=== PATIENT | female | born 1965 | race Caucasian/White ===

== ENCOUNTER 2020-05-21 11:15 | Outpatient (RCR) | payer OTHER, SELFPAY ==
--- NOTE | 2020-03-29 12:45 | PT.OPPOC ---
Physical, Occupational & Speech Therapy At [facility] Current Diagnoses Multiple sclerosis (03/29/20) Diplopia (03/29/20) Other forms of nystagmus (03/29/20) Dizziness and giddiness (03/29/20) Visit Care Team Role Provider Type Gemma Woodard PA-C Primary Care Provider Non-Staff Specialty: Medical Address: [address] [place] [address], [place], [address] Email: Johnny Jimenez Attending Provider Non-Staff Referring Provider Specialty: Psychiatry Address: [address], [address], [place], [address] Email: Plan Of Care PT-OP-T Assessment and Plan Start: 03/29/20 17:40 Freq: Status: Active Protocol: Document 03/29/20 12:00 DCW (Rec: 03/30/20 17:46 DCW [id number]) Physical Therapy Assessment Rehab Potential Rehabilitation Potential Fair Evaluation Complexity Number of Personal Factors/Comorbidities 3 or More Number of Body Systems Impaired 4 or More Clinical Presentation at Evaluation Unstable Impairments Impairments Activity Tolerance,Balance, Coordination,Vestibular,Visual Motor Goals Four Impairment Pt complains of occasional horizontal diplopia, especially when fatigued Assisted Goal (LTG) Pt to report no instances of diplopia over the course on 3 weeks. LTG Duration 05/30/20 Three Impairment Pt exhibits hypometria during saccadic movements Assisted Goal (LTG) Pt to demonstrate WNL saccadic movements during testing. LTG Duration 05/30/20 Two Impairment Pt has a three line degradation during DVA testing Stamping Mill Tender Goal (LTG) Pt to demonstrate less than two line degradation during DVA to help decrease pt's sensation of oscillopsia LTG Duration 05/30/20 One Impairment Pt does not have an appropriate home exercise program Short Term Goal (STG) Pt to be independent and compliant with an appropriate HEP STG Duration 04/29/20 Assessment Summary Assessment Pt presents with visual motion sensitivity, gaze-evoked nystagmus, decreased VOR DVA, oscillopsia, and occasional diplopia secondary to MS relapse, specifically in the dorsal pontine. Pt's symptoms result in instability, vertigo , fatigue, and a sense of feeling overwhelmed with movement, limiting her ability to perform her normal activities. Vestibular rehabilitation may be helpful with improving the coordination between pt's visual and vestibular system, improving her VOR to limit oscillopsia, improve oculomotor function to decrease fatigue-induced diplopia, and training pt to use saccadic movements in conjunction with head turns to limit visual motion sensitivity during lateral movements. MS is obviously pt' s main complicating factor, and will likely limit pt's recovery to a certain extent, however pt should see at least some improvement with regular therapy and compliance with an appropriate HEP. Physical Therapy Plan Frequency and Duration Frequency of Treatment 2x/Week Duration of Treatment 10 weeks Plan of Care Start Date 03/29/20 Plan of Care End Date 06/07/20 Therapeutic Interventions Therapeutic Interventions Balance Training,Coordination Training,Gait Training,Home Exercise Program,Neuromuscular Re-education,Patient/ Caregiver Education,Self-Care/ Home Management,Therapeutic Exercises,Vestibular Rehabilitation Next Visit Focus/Plan Next Note Type Treatment Note Next Visit Plan Oculomotor strengthening, vestibular rehabilitation, adaptation/habituation exercises, VOR retraining Plan of Care Dates Plan of Care Start Date 03/29/20 Plan of Care End Date 06/07/20 Electronically Signed by: Rodrigue Irby, PT 03/30/20 [id number] Please Sign and Return: I have reviewed this Plan of Care and certify that the skilled therapy services above are required to meet the patient?s needs. Physician Signature Date Printed Name and Credentials Clinical Instructor Signature Printed Name and Credentials
--- NOTE | 2020-03-29 12:45 | PT.OIE ---
Current Diagnoses Multiple sclerosis (03/29/20) Diplopia (03/29/20) Other forms of nystagmus (03/29/20) Dizziness and giddiness (03/29/20) Visit Care Team Role Provider Type Gemma Woodard PA-C Primary Care Provider Non-Staff Specialty: Medical Address: [address] [place] [address], [place], [address] Email: Johnny Jimenez Attending Provider Non-Staff Referring Provider Specialty: Psychiatry Address: [address] [place] [address], [address], [place], [address] Email: Physical Therapy Initial Evaluation PT-OP-A Visit Information Start: 03/29/20 17:40 Freq: Status: Active Protocol: Document 03/29/20 12:00 DCW (Rec: 03/29/20 17:56 [facility] [id number]) Out-Patient Physical Therapy Visit Information Visit Information Visit Type Initial Evaluation Visit Start Time 12:00 Visit Stop Time 12:55 Total Visit Minutes 55 Visit Number 1 Number of WELDER AND FITTER Visits 0 Evaluation Information Evaluation Date 03/29/20 PT-OP-B Current Condition Start: 03/29/20 17:40 Freq: Status: Active Protocol: Document 03/29/20 12:00 DCW (Rec: 03/29/20 17:56 [facility] [id number]) Current Condition History of Current Condition Onset Date 18 years s/p MS diagnosis, three years s/p relapse Current Complaints Oscillopsia, Dizziness /c head movement, Visual Sensitivity, Diplopia History of Current Condition Pt is a 54 year old female 18 years s/p diagnosis of Multiple Sclerosis. Pt reports that her initial flare-up lasted for one year, but then she did not have any problems until 2017, when she suffered a relapse in symptoms, and started having increased visual motion sensitivity. Pt has dizziness with lateral head movements, struggles with any activity that increases visual demands, describes that everything looks bouncy when walking down the street, and notes that it just seems like a cumulative effect, the more I do, the more overwhelming it feels. Pt notes that in the three years she has been dealing with these symptoms, she has been much more immobile, depressed, and out of shape. It's just this downward spiral because I feel like I can't do anything . PT-OP-C Subjective Start: 03/29/20 17:40 Freq: Status: Active Protocol: Document 03/29/20 12:00 DCW (Rec: 03/29/20 17:56 DC [id number]) Patient Questionnaires Dizziness Handicap Inventory DHI Score 58% DHI Functional Impairment 40 to 59% Impaired (Score 40- 59) PT-OP-O Vestibular Start: 03/29/20 17:40 Freq: Status: Active Protocol: Document 03/29/20 12:00 DCW (Rec: 03/30/20 09:40 [facility] [id number]) Vestibular Assessment Visual Testing Smooth Pursuits Horizontal WNL Smooth Pursuits Vertical WNL Saccades Horizontal Hypometria Gaze Evoked Nystagmus With Fixation Positive Gaze Evoked Nystagmus Without Fixation Positive Tigre String Test WNL Convergence Test WNL DVA (Line Degradation) 3 Vestibulo-Ocular Reflex (VOR1) Positive Vestibulo-Ocular Reflex (VOR2) Positive Vestibulo-Ocular Reflex Cancellation Negative Comments Vestibular Comments Gaze nystagmus: direction- changing end-range nystagmus bilaterally, L>R with and without fixation present PT-OP-Q Treatments Start: 03/29/20 17:40 Freq: Status: Active Protocol: Document 03/29/20 12:00 DCW (Rec: 03/30/20 09:40 [facility] [id number]) Neuro Re-Education Treatment Vestibular Rehabilitation Eye Push-ups Details Eye push-ups with pen Position seated Corrective Saccades Details Eyes, then head to target Distance From Target Arms length Speed as tolerated Position seated X2 Viewing Details Head/Target move opposite directions Distance From Target Arms length Speed as tolerated Position seated X1 Viewing Details Moving head, stable target Distance From Target Arms length Speed as tolerated Position seated VOR Cancellation Details Head/target moves together Distance From Target Arms length Speed as tolerated Position seated PT-OP-T Assessment and Plan Start: 03/29/20 17:40 Freq: Status: Active Protocol: Document 03/29/20 12:00 DCW (Rec: 03/30/20 17:46 [facility] [id number]) Physical Therapy Assessment Rehab Potential Rehabilitation Potential Fair Evaluation Complexity Number of Personal Factors/Comorbidities 3 or More Number of Body Systems Impaired 4 or More Clinical Presentation at Evaluation Unstable Impairments Impairments Activity Tolerance,Balance, Coordination,Vestibular,Visual Motor Goals Four Impairment Pt complains of occasional horizontal diplopia, especially when fatigued Skilled Nursing Goal (LTG) Pt to report no instances of diplopia over the course on 3 weeks. LTG Duration 05/30/20 Three Impairment Pt exhibits hypometria during saccadic movements Liquified Natural Gas Technician Goal (LTG) Pt to demonstrate WNL saccadic movements during testing. LTG Duration 05/30/20 Two Impairment Pt has a three line degradation during DVA testing Liquified Natural Gas Technician Goal (LTG) Pt to demonstrate less than two line degradation during DVA to help decrease pt's sensation of oscillopsia LTG Duration 05/30/20 One Impairment Pt does not have an appropriate home exercise program Short Term Goal (STG) Pt to be independent and compliant with an appropriate HEP STG Duration 04/29/20 Assessment Summary Assessment Pt presents with visual motion sensitivity, gaze-evoked nystagmus, decreased VOR DVA, oscillopsia, and occasional diplopia secondary to MS relapse, specifically in the dorsal pontine. Pt's symptoms result in instability, vertigo , fatigue, and a sense of feeling overwhelmed with movement, limiting her ability to perform her normal activities. Vestibular rehabilitation may be helpful with improving the coordination between pt's visual and vestibular system, improving her VOR to limit oscillopsia, improve oculomotor function to decrease fatigue-induced diplopia, and training pt to use saccadic movements in conjunction with head turns to limit visual motion sensitivity during lateral movements. MS is obviously pt' s main complicating factor, and will likely limit pt's recovery to a certain extent, however pt should see at least some improvement with regular therapy and compliance with an appropriate HEP. Physical Therapy Plan Frequency and Duration Frequency of Treatment 2x/Week Duration of Treatment 10 weeks Plan of Care Start Date 03/29/20 Plan of Care End Date 06/07/20 Therapeutic Interventions Therapeutic Interventions Balance Training,Coordination Training,Gait Training,Home Exercise Program,Neuromuscular Re-education,Patient/ Caregiver Education,Self-Care/ Home Management,Therapeutic Exercises,Vestibular Rehabilitation Next Visit Focus/Plan Next Note Type Treatment Note Next Visit Plan Oculomotor strengthening, vestibular rehabilitation, adaptation/habituation exercises, VOR retraining
--- NOTE | 2020-04-16 14:36 | PT.OTN ---
Current Diagnoses Multiple sclerosis (04/16/20) Diplopia (04/16/20) Other forms of nystagmus (04/16/20) Dizziness and giddiness (04/16/20) Physical Therapy Treatment Note PT-OP-A Visit Information Start: 03/29/20 17:40 Freq: Status: Active Protocol: Document 04/16/20 13:45 DCW (Rec: 04/16/20 14:35 DCW [id number]) Out-Patient Physical Therapy Visit Information Visit Information Visit Type Treatment Note Visit Start Time 13:45 Visit Stop Time 14:30 Total Visit Minutes 45 Visit Number 2 Number of PRIMER SUPERVISOR Visits 0 Evaluation Information Evaluation Date 03/29/20 PT-OP-B Current Condition Start: 03/29/20 17:40 Freq: Status: Active Protocol: Document 03/29/20 12:00 DCW (Rec: 03/29/20 17:56 DCW [id number]) Current Condition History of Current Condition Onset Date 18 years s/p MS diagnosis, three years s/p relapse Current Complaints Oscillopsia, Dizziness /c head movement, Visual Sensitivity, Diplopia History of Current Condition Pt is a 54 year old female 18 years s/p diagnosis of Multiple Sclerosis. Pt reports that her initial flare-up lasted for one year, but then she did not have any problems until 2017, when she suffered a relapse in symptoms, and started having increased visual motion sensitivity. Pt has dizziness with lateral head movements, struggles with any activity that increases visual demands, describes that everything looks bouncy when walking down the street, and notes that it just seems like a cumulative effect, the more I do, the more overwhelming it feels. Pt notes that in the three years she has been dealing with these symptoms, she has been much more immobile, depressed, and out of shape. It's just this downward spiral because I feel like I can't do anything . PT-OP-C Subjective Start: 03/29/20 17:40 Freq: Status: Active Protocol: Document 04/16/20 13:45 DCW (Rec: 04/16/20 14:35 DCW [id number]) OP-PT Subjective Patient Comments Patient Comments Pt reports she is noticing a difference in the world,. and me relative to it. PT-OP-O Vestibular Start: 03/29/20 17:40 Freq: Status: Active Protocol: Document 03/29/20 12:00 DCW (Rec: 03/30/20 09:40 DCW [id number]) Vestibular Assessment Visual Testing Smooth Pursuits Horizontal WNL Smooth Pursuits Vertical WNL Saccades Horizontal Hypometria Gaze Evoked Nystagmus With Fixation Positive Gaze Evoked Nystagmus Without Fixation Positive Tigre String Test WNL Convergence Test WNL DVA (Line Degradation) 3 Vestibulo-Ocular Reflex (VOR1) Positive Vestibulo-Ocular Reflex (VOR2) Positive Vestibulo-Ocular Reflex Cancellation Negative Comments Vestibular Comments Gaze nystagmus: direction- changing end-range nystagmus bilaterally, L>R with and without fixation present PT-OP-Q Treatments Start: 03/29/20 17:40 Freq: Status: Active Protocol: Document 04/16/20 13:45 DCW (Rec: 04/16/20 14:35 DCW [id number]) Neuro Re-Education Treatment Vestibular Rehabilitation Garcia Chart Details Saccadic Reading Comments Full chart 1:02, one mistake Targets Details Laser tracking Background [place] print Position Stance - Firm and Hernández foam Comments Horizontal, Vertical, Cursive Eye Push-ups Details Eye push-ups with pen Position seated Corrective Saccades Details Eyes, then head to target Distance From Target Arms length Speed as tolerated Position seated X2 Viewing Details Head/Target move opposite directions Distance From Target Arms length Speed as tolerated Position seated X1 Viewing Details Moving head, stable target Distance From Target Arms length Speed as tolerated Position seated VOR Cancellation Details Head/target moves together Distance From Target Arms length Speed as tolerated Position seated PT-OP-T Assessment and Plan Start: 03/29/20 17:40 Freq: Status: Active Protocol: Document 04/16/20 13:45 DCW (Rec: 04/16/20 14:35 DCW [id number]) Physical Therapy Assessment Assessment Summary Assessment Pt has made fantastic progress so far, improved gaze stability and decreased complaints of oscillopsia. Continue with therapy in order to reduce remaining visual motion sensitivity. Physical Therapy Plan Frequency and Duration Frequency of Treatment 2x/Week Duration of Treatment 10 weeks Plan of Care Start Date 03/29/20 Plan of Care End Date 06/07/20 Therapeutic Interventions Therapeutic Interventions Balance Training,Coordination Training,Gait Training,Home Exercise Program,Neuromuscular Re-education,Patient/ Caregiver Education,Self-Care/ Home Management,Therapeutic Exercises,Vestibular Rehabilitation Next Visit Focus/Plan Next Note Type Treatment Note Next Visit Plan Oculomotor strengthening, vestibular rehabilitation, adaptation/habituation exercises, VOR retraining
--- NOTE | 2020-05-21 12:12 | PT.OTN ---
Current Diagnoses Multiple sclerosis (05/21/20) Diplopia (05/21/20) Other forms of nystagmus (05/21/20) Dizziness and giddiness (05/21/20) Physical Therapy Treatment Note PT-OP-A Visit Information Start: 03/29/20 17:40 Freq: Status: Active Protocol: Document 05/21/20 11:15 DCW (Rec: 05/21/20 12:12 DCW [id number]) Out-Patient Physical Therapy Visit Information Visit Information Visit Type Treatment Note Visit Start Time 11:15 Visit Stop Time 12:00 Total Visit Minutes 45 Visit Number [address] CLERK Visits 0 Evaluation Information Evaluation Date 03/29/20 PT-OP-B Current Condition Start: 03/29/20 17:40 Freq: Status: Active Protocol: Document 03/29/20 12:00 DCW (Rec: 03/29/20 17:56 DCW [id number]) Current Condition History of Current Condition Onset Date 18 years s/p MS diagnosis, three years s/p relapse Current Complaints Oscillopsia, Dizziness /c head movement, Visual Sensitivity, Diplopia History of Current Condition Pt is a 54 year old female 18 years s/p diagnosis of Multiple Sclerosis. Pt reports that her initial flare-up lasted for one year, but then she did not have any problems until 2017, when she suffered a relapse in symptoms, and started having increased visual motion sensitivity. Pt has dizziness with lateral head movements, struggles with any activity that increases visual demands, describes that everything looks bouncy when walking down the street, and notes that it just seems like a cumulative effect, the more I do, the more overwhelming it feels. Pt notes that in the three years she has been dealing with these symptoms, she has been much more immobile, depressed, and out of shape. It's just this downward spiral because I feel like I can't do anything . PT-OP-C Subjective Start: 03/29/20 17:40 Freq: Status: Active Protocol: Document 05/21/20 11:15 DCW (Rec: 05/21/20 12:12 DCW [id number]) OP-PT Subjective Patient Comments Patient Comments Pt admits isra tunfortunately I've really been slacking off with my exercises, and I can tell I'm slipping backward. PT-OP-O Vestibular Start: 03/29/20 17:40 Freq: Status: Active Protocol: Document 03/29/20 12:00 DCW (Rec: 03/30/20 09:40 DCW [id number]) Vestibular Assessment Visual Testing Smooth Pursuits Horizontal WNL Smooth Pursuits Vertical WNL Saccades Horizontal Hypometria Gaze Evoked Nystagmus With Fixation Positive Gaze Evoked Nystagmus Without Fixation Positive Tigre String Test WNL Convergence Test WNL DVA (Line Degradation) 3 Vestibulo-Ocular Reflex (VOR1) Positive Vestibulo-Ocular Reflex (VOR2) Positive Vestibulo-Ocular Reflex Cancellation Negative Comments Vestibular Comments Gaze nystagmus: direction- changing end-range nystagmus bilaterally, L>R with and without fixation present PT-OP-Q Treatments Start: 03/29/20 17:40 Freq: Status: Active Protocol: Document 05/21/20 11:15 DCW (Rec: 05/21/20 12:12 DCW [id number]) Neuro Re-Education Treatment Balance Activities 8 Details Reading on Trampoline 7 Details Single leg forward bend to cone Comments with and without head turns 6 Details Read tennis balls in air 5 Details Rotational Ball toss 4 Details Looking behind at dots 3 Details Infinity walk 2 Details Tandem walking /c head turns 1 Details Smooth pursuit ball toss-up Comments Standing Walking Tandem Walking PT-OP-T Assessment and Plan Start: 03/29/20 17:40 Freq: Status: Active Protocol: Document 05/21/20 11:15 DCW (Rec: 05/21/20 12:12 DCW [id number]) Physical Therapy Assessment Impairments Impairments Activity Tolerance,Balance, Coordination,Vestibular,Visual Motor Goals Four Impairment Pt complains of occasional horizontal diplopia, especially when fatigued Entrepreneurial Finance Professor Goal (LTG) Pt to report no instances of diplopia over the course on 3 weeks. LTG Duration 05/30/20 Three Impairment Pt exhibits hypometria during saccadic movements Care Home Goal (LTG) Pt to demonstrate WNL saccadic movements during testing. LTG Duration 05/30/20 Two Impairment Pt has a three line degradation during DVA testing Care Home Goal (LTG) Pt to demonstrate less than two line degradation during DVA to help decrease pt's sensation of oscillopsia LTG Duration 05/30/20 One Impairment Pt does not have an appropriate home exercise program Short Term Goal (STG) Pt to be independent and compliant with an appropriate HEP STG Duration 04/29/20 Assessment Summary Assessment Pt did very well today, found significant challenge with both balance and visual tracking with most of the exercises, very happy with the topics covered today. Physical Therapy Plan Frequency and Duration Frequency of Treatment 2x/Week Duration of Treatment 10 weeks Plan of Care Start Date 03/29/20 Plan of Care End Date 06/07/20 Therapeutic Interventions Therapeutic Interventions Balance Training,Coordination Training,Gait Training,Home Exercise Program,Neuromuscular Re-education,Patient/ Caregiver Education,Self-Care/ Home Management,Therapeutic Exercises,Vestibular Rehabilitation Next Visit Focus/Plan Next Note Type Treatment Note Next Visit Plan Oculomotor strengthening, vestibular rehabilitation, adaptation/habituation exercises, VOR retraining
--- NOTE | 2020-10-13 11:53 | PT.OPDS ---
Current Diagnoses Multiple sclerosis (05/21/20) Diplopia (05/21/20) Other forms of nystagmus (05/21/20) Dizziness and giddiness (05/21/20) Visit Care Team Role Provider Type Gemma Woodard PA-C Primary Care Provider Non-Staff Specialty: Medical Address: [address] [place] [address], [place], [address] Email: Jhonny Jimenez MD Attending Provider Non-Staff Referring Provider Specialty: Psychiatry Address: [address] [place] [address], [address], [place], [address] Email: Visit Number Visit Number 3 Discharge Summary PT-OP-B Current Condition Start: 03/29/20 17:40 Freq: Status: Active Protocol: Document 03/29/20 12:00 DCW (Rec: 03/29/20 17:56 DCW [id number]) Current Condition History of Current Condition Onset Date 18 years s/p MS diagnosis, three years s/p relapse Current Complaints Oscillopsia, Dizziness /c head movement, Visual Sensitivity, Diplopia History of Current Condition Pt is a 54 year old female 18 years s/p diagnosis of Multiple Sclerosis. Pt reports that her initial flare-up lasted for one year, but then she did not have any problems until 2017, when she suffered a relapse in symptoms, and started having increased visual motion sensitivity. Pt has dizziness with lateral head movements, struggles with any activity that increases visual demands, describes that everything looks bouncy when walking down the street, and notes that it just seems like a cumulative effect, the more I do, the more overwhelming it feels. Pt notes that in the three years she has been dealing with these symptoms, she has been much more immobile, depressed, and out of shape. It's just this downward spiral because I feel like I can't do anything . PT-OP-C Subjective Start: 03/29/20 17:40 Freq: Status: Active Protocol: Document 05/21/20 11:15 DCW (Rec: 05/21/20 12:12 DCW [id number]) OP-PT Subjective Patient Comments Patient Comments Pt admits isra tunfortunately I've really been slacking off with my exercises, and I can tell I'm slipping backward. PT-OP-O Vestibular Start: 03/29/20 17:40 Freq: Status: Active Protocol: Document 03/29/20 12:00 DCW (Rec: 03/30/20 09:40 [facility] [id number]) Vestibular Assessment Visual Testing Smooth Pursuits Horizontal WNL Smooth Pursuits Vertical WNL Saccades Horizontal Hypometria Gaze Evoked Nystagmus With Fixation Positive Gaze Evoked Nystagmus Without Fixation Positive Tigre String Test WNL Convergence Test WNL DVA (Line Degradation) 3 Vestibulo-Ocular Reflex (VOR1) Positive Vestibulo-Ocular Reflex (VOR2) Positive Vestibulo-Ocular Reflex Cancellation Negative Comments Vestibular Comments Gaze nystagmus: direction- changing end-range nystagmus bilaterally, L>R with and without fixation present PT-OP-T Assessment and Plan Start: 03/29/20 17:40 Freq: Status: Active Protocol: Document 10/13/20 11:50 DCW (Rec: 10/13/20 11:53 [facility] [id number]) Physical Therapy Assessment Assessment Summary Assessment Pt has canceled and rescheduled a few times due to schedule conflicts and coronavirus concerns. Unfortunately, pt has now reached the point where she has not been seen in 4.5 months, and her next scheduled visit was still one month away. Therapist phoned patient and informed her that this was too long of a lapse in treatment, and she would need to be discharged. Pt was understanding, but disappointed. Pt instructed to return with a new evaluation when she felt better about attending therapy.
== END 2020-10-18 15:05 ==
LOC: PHYS 11:15
PROVIDERS: PCP Physician Assistant Medical; Referring Provider Psychiatry & Neurology Neurology; Visit Provider Psychiatry & Neurology Neurology
DX: G35 Multiple sclerosis (principal); R42 Dizziness and giddiness; H53.2 Diplopia; H55.09 Other forms of nystagmus
CPT/HCPCS: 97112; 97163

== ENCOUNTER → 2021-08-05 12:10 | Outpatient (CLI) | payer OTHER, SELFPAY ==
--- NOTE | 2021-08-05 | DI.MRI.S_ITS ---
PROCEDURE: MR CERVICAL SPINE WO CON INDICATIONS: NECK PAIN TECHNIQUE: Noncontrast sagittal T1 spin echo and T2 fast spin echo, sagittal STIR, foraminal oblique sagittal T2 fast spin echo, and axial gradient echo or T2 fast spin echo through the cervical spine. COMPARISON: Outside Facility, RG, MRI C-SPINE W/WO CONTRAST, 08/10/2018, 16:23. FINDINGS: Image quality: Excellent. Alignment and Curvature: There is loss of normal cervical lordosis. There is mild grade 1 anterolisthesis of C3 on C4. Bone Marrow: Marrow demonstrates normal overall signal. Mild reactive signal within the endplates of the mid/upper cervical spine. Spinal Cord: Visualized spinal cord has normal size. The previously seen focus of minimally elevated T2 signal intensity within the left hemicord at C4 (series 4, image 18) is not significantly changed. No cerebellar tonsillar herniation. Paraspinous Soft Tissues: No paravertebral masses. Prevertebral soft tissues are normal in thickness. The previously seen left thyroid mass appears to have increased slightly in size, current 20 mm diameter. C2-C3: Mild disc desiccation and diffuse disc bulge. No significant canal, or foraminal stenosis. No change. C3-C4: Mild disc height loss and desiccation. Mild diffuse disc bulge with superimposed left far lateral protrusion/osteophyte. Mild facet and uncovertebral hypertrophy bilaterally. Mild canal stenosis and mild right foraminal stenosis is unchanged. Increased, severe left foraminal stenosis with left C4 nerve root compression. C4-C5: Mild disc height loss and desiccation. Moderate left and mild right facet and uncovertebral hypertrophy. Mild canal stenosis is unchanged. Mild right foraminal stenosis is unchanged. Increased, severe left foraminal stenosis with left C5 nerve root compression. C5-C6: Mild disc desiccation and diffuse disc bulge. Mild facet and uncovertebral hypertrophy bilaterally. Mild canal stenosis. Mild bilateral foraminal stenosis. No significant change. C6-C7: Mild disc desiccation and diffuse disc bulge. Mild facet and uncovertebral hypertrophy bilaterally. Mild canal stenosis. Mild bilateral foraminal stenosis. No significant change. C7-T1: Mild disc desiccation. No significant canal, or foraminal stenosis. No significant change. IMPRESSION: 1. Multilevel degenerative disc and facet disease, as well as uncovertebral hypertrophy. 2. Mild multilevel canal stenoses. 3. Multilevel foraminal stenoses, worst at C3-C4 and C4-C5 where there is associated intraforaminal nerve root compression. Recommend correlation with clinical symptoms to ascertain relevance of this finding. 4. No change in small focus of minimally elevated T2 signal elevation within the left hemicord as described above. 5. Left thyroid nodule, possibly increased. Thyroid ultrasound examination is recommended for further assessment. Dictated by: Alexandro Retana M.D. on 08/05/2021 at 13:13 Approved by: Alexandro Retana M.D. on 08/05/2021 at 13:19
== END ==
PROVIDERS: PCP Family Medicine; Referring Provider Physical Medicine & Rehabilitation; Visit Provider Physical Medicine & Rehabilitation
DX: M47.812 Spondylosis without myelopathy or radiculopathy, cervical region (principal); M50.31 Other cervical disc degeneration, high cervical region; M48.02 Spinal stenosis, cervical region; E04.1 Nontoxic single thyroid nodule
CPT/HCPCS: 72141